=== PATIENT | female | born 1935 | race Caucasian/White ===

== ENCOUNTER 2017-08-15 08:36 | Emergency (ER) | payer MEDICARE, OTHER ==
[2017-08-15 08:43] VITALS: PULSE 93; RESP 20; TEMP 98.1
--- NOTE | 2017-08-15 09:01 | ED ---
General Adult HPI - General Chief complaint: Extremity Injury, Lower Stated complaint: fall 3 weeks ago, rt knee injury Time Seen by Provider: 08/15/17 08:45 Source: patient, RN notes reviewed Mode of arrival: ambulatory Limitations: no limitations - History of Present Illness Initial comments: Patient is an 82-year-old female who presents emergency room today with a chief complaint of right-sided knee pain from fall that occurred 2 weeks ago. She states she tripped outside of the hospital 2 weeks ago fell down onto the right knee. Says she's noticed some pain locally to the anterior aspect distress mild she's also felt some warmth and heat in that area. She states is was some swelling down to the calf area. She denies any other complaints or symptoms at this time. Patient denies any recent fever, chills, shortness of breath, chest pain, back pain, abdominal pain, nausea or vomiting, numbness or tingling, dysuria or hematuria, constipation or diarrhea, headaches or visual changes, or any other complaints. - Related Data Home Medications Medication Instructions Recorded Confirmed ALPRAZolam [Xanax] 0.25 mg PO BID PRN 08/15/17 08/15/17 Aspirin [Adult Low Dose Aspirin EC] 81 mg PO DAILY 08/15/17 08/15/17 Cholecalciferol [Vitamin D3] 1,000 unit PO DAILY 08/15/17 08/15/17 Flaxseed Oil [Bell-3 Flaxseed Oil] 1,000 mg PO DAILY 08/15/17 08/15/17 Multivitamins, Thera [Multivitamin 1 tab PO DAILY 08/15/17 08/15/17 (formulary)] Bell-3 Fatty Acids/Fish Oil [Fish 1 cap PO BID 08/15/17 08/15/17 Oil 1,000 mg Softgel] Simvastatin [Zocor] 40 mg PO HS 08/15/17 08/15/17 amLODIPine BESYLATE [Norvasc] 5 mg PO DAILY 08/15/17 08/15/17 traMADol HCL [Ultram] 50 mg PO Q6HR PRN 08/15/17 08/15/17 Allergies Allergy/AdvReac Type Severity Reaction Status Date / Time Penicillins Allergy Unknown Verified 08/15/17 08:54 Review of Systems ROS Statement: Those systems with pertinent positive or pertinent negative responses have been documented in the HPI. ROS Other: All systems not noted in ROS Statement are negative. Past Medical History Past Medical History: Hyperlipidemia, Hypertension Additional Past Medical History / Comment(s): chronic back pain History of Any Multi-Drug Resistant Organisms: None Reported Past Psychological History: Anxiety Smoking Status: Never smoker Past Alcohol Use History: None Reported Past Drug Use History: None Reported General Exam - General Exam Comments Initial Comments: General: The patient is awake and alert, in no distress, and does not appear acutely ill. Neck: The neck is supple, there is no tenderness or JVD. Cardiovascular: There is a regular rate and rhythm. No murmur, rub or gallop is appreciated. Respiratory: Lungs are clear to auscultation, respirations are non-labored, breath sounds are equal. No wheezes, stridor, rales, or rhonchi. Musculoskeletal: Patient has normal appearance of the right knee. There is no redness swelling appreciated. Mild tenderness over the anterior aspect. Negative Homans. No tenderness down to the right ankle or foot. Pulses bilateral 2+. Strength 5/5. Neurological: A&O x 3. CN II-XII intact, There are no obvious motor or sensory deficits. Coordination appears grossly intact. Speech is normal. Skin: Skin is warm and dry and no rashes or lesions are noted. Psychiatric: Normal mood and affect. Limitations: no limitations Course Vital Signs 08/15/17 08/15/17 08:41 09:10 Temperature 98.1 F Pulse Rate 93 Respiratory 20 Rate Blood Pressure 190/83 157/94 O2 Sat by Pulse 98 Oximetry Medical Decision Making - Medical Decision Making Patient's also negative for any evidence of DVT. Patient's x-rays unremarkable no signs of dislocation or fracture. Results were discussed with the patient. Son symptoms of cellulitis were also discussed with patient. There is no redness over the anterior knee but there is a small scabbed area. She is advised watch for signs of infection. Advised follow family doctor return here to the emergency room if any symptoms increase worsen or fail concerns. Disposition Clinical Impression: Contusion of knee, right Disposition: HOME SELF-CARE Condition: Good Instructions: Knee Pain (ED) Additional Instructions: Please watch for any signs of infection as discussed. Please follow-up with family doctor in the next 2 to 5 days if symptoms are not improving.. Please return to emergency room if the symptoms increase or worsen or for any other concerns. Referrals: Jaida Bunch MD [Primary Care Provider] - 1-2 days Time of Disposition: 09:38
--- NOTE | 2017-08-15 09:08 | XR ---
EXAMINATION TYPE: XR knee complete RT DATE OF EXAM: 08/15/2017 COMPARISON: NONE HISTORY: 82-year-old female with pain and swelling after fall 2 weeks ago TECHNIQUE: 3 views FINDINGS: Nonspecific small knee joint effusion. Extensor mechanism is intact. There is degenerative spurring i n the medial and patellofemoral compartments. Osteopenia without acute fracture, subluxation, or disl ocation. IMPRESSION: 1. No acute osseous abnormality seen. Mild medial and patellofemoral compartmental osteoarthrosis. 2. Nonspecific small knee joint effusion may be reactive. If concern for internal derangement, MRI ca n be performed.
[2017-08-15 09:23] VITALS: BP 157/94
--- NOTE | 2017-08-15 09:36 | US ---
EXAMINATION TYPE: US venous doppler duplex LE RT DATE OF EXAM: 08/15/2017 9:22 AM COMPARISON: NONE CLINICAL HISTORY: Pain. No hx of blood clots or on blood thinners. Right knee pain. SIDE PERFORMED: Right TECHNIQUE: The lower extremity deep venous system is examined utilizing real time linear array sonog zack with graded compression, doppler sonography and color-flow sonography. VESSELS IMAGED: External Iliac Vein (EIV) Common Femoral Vein Deep Femoral Vein Greater Saphenous Vein * Femoral Vein Popliteal Vein Small Saphenous Vein * Proximal Calf Veins (* superficial vessels) Right Leg: Appears negative for DVT IMPRESSION: No evidence for DVT within the right lower extremity imaged from the groin to the upper calf.
== END 2017-08-15 09:45 | disposition home or self-care (01) ==
LOC: EC 08:36
DX: S80.01XA Contusion of right knee, initial encounter (principal); E78.5 Hyperlipidemia, unspecified; I10 Essential (primary) hypertension; Z88.0 Allergy status to penicillin; Z79.82 Long term (current) use of aspirin; Z79.899 Other long term (current) drug therapy; W01.0XXA Fall on same level from slipping, tripping and stumbling without subsequent striking against object, initial encounter; Y92.89 Other specified places as the place of occurrence of the external cause
CPT/HCPCS: 99284

== ENCOUNTER → 2018-06-23 | Outpatient (CLI) | payer MEDICARE ==
--- NOTE | 2018-06-23 14:30 | CT ---
EXAMINATION TYPE: CT abdomen pelvis wo/w con DATE OF EXAM: 06/23/2018 COMPARISON: None INDICATION: pelvic and perineal pain DLP: 1503.60 mGycm, Automated exposure control for dose reduction was used. CONTRAST: 100 ml mL of Isovue 300. Study performed with Oral Contrast TECHNIQUE: Axial images were obtained from above the diaphragm to the pubic rami in the axial plane a t 5 mm thick sections. Reconstructed images are reviewed on the computer in the coronal plane. FINDINGS: Limited CT sections are obtained the lung bases. There is a 0.6 cm calcified granuloma at the right lung base. Lung bases are otherwise clear. Coronary artery calcification is noted. Small hiatal herni a is present.. CT ABDOMEN: Liver: Normal Spleen: Normal Pancreas: Normal Adrenal glands: The adrenal glands are normal. Gallbladder: Normal Kidneys: No masses are evident. No hydronephrosis is present. No cysts are present. No renal stone s are identified. There is an extrarenal pelvis on the left. Aorta: Vascular calcification is within the aorta. Inferior vena cava: Normal. CT PELVIS: Loops of bowel within the abdomen and pelvis are normal. Scattered diverticuli are within the dista l colon. No acute diverticulitis is evident. There are loops of bowel which are incompletely distend ed or lack oral contrast limiting their evaluation. Appendix: Not visualized. No suspicious inflammatory changes or dilated tubular structures are eviden t. Urinary bladder: Normal. Genitourinary structures: Uterus is unremarkable. Adnexal regions are normal Osseous structures: No suspicious lytic or sclerotic lesions. There is a sclerotic lesion along the a nterior lateral left iliac crest of uncertain significance. Degenerative disc changes and facet fierro es are present. IMPRESSIONS: 1. Diverticulosis without acute diverticulitis. 2. Small hiatal hernia. 3. No suspicious perineal changes to account for patient's reported pain
== END | disposition home or self-care (01) ==
LOC: RADCTMAIN 06-21 10:26
PROVIDERS: ATTEND Family Medicine
DX: K57.30 Diverticulosis of large intestine without perforation or abscess without bleeding (principal); K44.9 Diaphragmatic hernia without obstruction or gangrene; I10 Essential (primary) hypertension
CPT/HCPCS: 82565; 84520; 74178; 36415; Q9967

== ENCOUNTER → 2020-01-14 | Outpatient (CLI) | payer MEDICARE ==
--- NOTE | 2020-01-14 10:19 | XR ---
EXAMINATION TYPE: XR knee complete LT DATE OF EXAM: 01/14/2020 COMPARISON: None HISTORY: Knee pain TECHNIQUE: Four views are submitted. FINDINGS: There is narrowing of the medial compartment knee joint with hypertrophic spurring. Soft tissue ossif ications in anterior to the distal femur. Severe narrowing of the patellofemoral joint with hypertrop hic changes.. Osseous structures are intact. No acute fracture seen. IMPRESSION: 1. Severe arthropathy correlate for osteoarthritis..
== END | disposition home or self-care (01) ==
LOC: RADXRMAIN 09:10
PROVIDERS: ATTEND Family Medicine
DX: M12.862 Other specific arthropathies, not elsewhere classified, left knee (principal); R22.42 Localized swelling, mass and lump, left lower limb
CPT/HCPCS: 85379

== ENCOUNTER → 2020-02-13 | Outpatient (CLI) | payer MEDICARE ==
--- NOTE | 2020-02-13 08:28 | MR ---
EXAMINATION TYPE: MR knee LT wo con DATE OF EXAM: 02/13/2020 COMPARISON: X-ray 01/30/2020 HISTORY: Left knee pain TECHNIQUE: Multiplanar, multisequence imaging of the left knee is performed without IV contrast. FINDINGS: There is diffuse osteopenia. Narrowing of the medial compartment of the knee joint. Hypertr ophic spurring seen with severe narrowing of the patellofemoral joint. There is subcutaneous emphysem a. Lateral meniscus has a normal pharynx. There is truncation of the posterior horn medial meniscus. There is subtle loss of cartilage along the articular surface of the medial femur compatible with an area of localized grade III chondromalacia. Marked narrowing of patellofemoral joint with complete loss of cartilage noted reactive marrow signal changes. Spurring noted. Findings most marked along the apex and lateral patellar facet. Patellar and quadriceps tendons are intact. Trace amount of fluid in the suprapatellar bursa. Medial collateral and lateral collateral intact. Anterior cruciate ligament intact. There appears to be thickening and marked abnormal signal involving the posterior cruciate ligament. 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 IMPRESSION: 1. Severe osteoarthritis with changes of chondromalacia. 2. Marked thickening and increased signal along the entire length of PCL suspicious for partial tear. 3. PseudoExtrusion of the medial meniscus with findings suggestive of posterior horn tear
== END | disposition home or self-care (01) ==
LOC: RADMRIMAIN 06:43
PROVIDERS: ATTEND Orthopaedic Surgery
DX: M17.12 Unilateral primary osteoarthritis, left knee (principal); M94.262 Chondromalacia, left knee; M23.332 Other meniscus derangements, other medial meniscus, left knee; M25.862 Other specified joint disorders, left knee